=== PATIENT | female | born 1945 | race Caucasian/White ===

== ENCOUNTER 2018-03-13 09:51 | Emergency (ER) | payer MEDICARE, BC ==
[~2018-03-13] VITALS: Ht 175.3 cm; Wt 65.9 kg
[2018-03-13 10:02] VITALS: BP 120/82
[2018-03-13] MEDS ORDERED: AMLO2.5T3 PO (11:14)
[2018-03-13] MEDS ORDERED: HYDROcodone/APAP 5/325 TABLET PO ONE (11:30)
[2018-03-13] MEDS ORDERED: HYDROcodone/APAP 5/325 TABLET ONE (12:05)
== END 2018-03-13 12:37 | disposition home or self-care (01) ==
LOC: ED 12:00
DX: S39.012A Strain of muscle, fascia and tendon of lower back, initial encounter (principal); M51.36 Other intervertebral disc degeneration, lumbar region; M54.41 Lumbago with sciatica, right side; I10 Essential (primary) hypertension; X58.XXXA Exposure to other specified factors, initial encounter; Y93.89 Activity, other specified; Y92.89 Other specified places as the place of occurrence of the external cause; Y99.8 Other external cause status
CPT/HCPCS: 72110; 99283

== ENCOUNTER → 2018-03-15 | Outpatient (CLI) | payer MEDICARE, BC ==
[~2018-03-15] MED LIST: AMLO2.5T3 PO
== END | disposition home or self-care (01) ==
LOC: CFH 15:52
PROVIDERS: ATTEND Internal Medicine
DX: M51.26 Other intervertebral disc displacement, lumbar region (principal); M48.061 Spinal stenosis, lumbar region without neurogenic claudication; M47.816 Spondylosis without myelopathy or radiculopathy, lumbar region; M54.42 Lumbago with sciatica, left side
CPT/HCPCS: 72148

== ENCOUNTER → 2019-09-30 | Outpatient (CLI) | payer MEDICARE, BC ==
[~2019-09-30] MED LIST changes: -AMLO2.5T3 PO; +AMLO2.5T5 PO
[2019-09-30 15:54] LABS: HCT (SEDRATE) 40.4 % (34.6-47.8)
== END | disposition home or self-care (01) ==
LOC: CFH 11:31
PROVIDERS: ATTEND Psychiatry & Neurology Neurology
DX: M47.812 Spondylosis without myelopathy or radiculopathy, cervical region (principal); M48.02 Spinal stenosis, cervical region; R51 Headache
CPT/HCPCS: 36415; 72050; 85651

== ENCOUNTER → 2020-05-30 | Outpatient (CLI) | payer MEDICARE, BC ==
[~2020-05-30] MED LIST changes: +OMNIPAQUE 350 MG/ML, 100ML BOTTLE ONE
== END | disposition home or self-care (01) ==
LOC: CFH 12:12
PROVIDERS: ATTEND Internal Medicine
DX: M47.817 Spondylosis without myelopathy or radiculopathy, lumbosacral region (principal); I86.2 Pelvic varices
CPT/HCPCS: 74177; Q9967